=== PATIENT | male | born 2000 | race Caucasian/White ===

== ENCOUNTER 2021-07-20 11:26 | Inpatient (IN) | payer OTHER ==
[2021-07-20 11:33] VITALS: BMI 23.8
[2021-07-20] MEDS ORDERED: BISMUTH SUBSALICYLATE 524 MG/30 ML PO PRN (12:32)
[2021-07-20] MEDS ORDERED: cloNIDine HCL 0.1 MG TABLET PO PRN (12:32)
[2021-07-20] MEDS ORDERED: ONDANSETRON *ODT* 4 MG TABLET SL PRN (12:32)
[2021-07-20] MEDS ORDERED: MAG HYDROX/AL HYDROX/SIMETH 30 ML UNIT-DOSE CUP PO PRN (12:32)
[2021-07-20] MEDS ORDERED: MAGNESIUM CITRATE 300 ML BOTTLE PO PRN (12:32)
[2021-07-20] MEDS ORDERED: ACETAMINOPHEN 325 MG TABLET (FP) PO PRN (12:32)
[2021-07-20] MEDS ORDERED: MENTHOL/PHENOL 1 EACH UD MM PRN (12:32)
[2021-07-20] MEDS ORDERED: IBUPROFEN 400 MG TABLET (FP) PO PRN (12:32)
[2021-07-20] MEDS ORDERED: MAGNESIUM HYDROX 2400MG/30ML ORAL SUSPENSION 30 ML CUP PO PRN (12:32)
[2021-07-20] MEDS ORDERED: methaDONE HCL 10 MG TABLET (FOR DETOX USE ONLY) PO ONE (14:00)
[2021-07-20] MEDS: PRENATAL VITAMINS W/ FOLIC ACID TABLET (FP) PO SCH (14:06)
[2021-07-20] MEDS: hydrOXYzine PAMOATE 25 MG CAPSULE (FP) PO SCH ×3 (14:09→22:03)
[2021-07-20] MEDS: METHOCARBAMOL 500 MG TABLET PO PRN (14:09)
[2021-07-20 17:21] LABS: HEMATOCRIT 39.7 % (35.4-49); HEMOGLOBIN 13.5 GM/dL (11.7-16.9); MCH 29.5 pg (25.7-33.7); MEAN CELL VOLUME 86.9 fl (80-96); MEAN PLT VOLUME 8.6 fl (7.5-11.1); PLATELET COUNT 232 10^3/uL (134-434); RBC 4.57 M/mm3 (4.00-5.60); RDW 12.7 % (11.9-15.9); WHITE BLOOD COUNT 8.4 K/mm3 (4.0-10.0)
[2021-07-20 17:24] LABS: CALCIUM 9.1 mg/dL (8.5-10.1)
[2021-07-20 17:25] LABS: ALBUMIN 3.7 g/dl (3.4-5.0); BLOOD UREA NITROGEN 12.2 mg/dL (7-18)
[2021-07-20 17:28] LABS: CREATININE 0.6 mg/dL (0.55-1.3)
[2021-07-20 17:30] LABS: BILIRUBIN,TOTAL 0.6 mg/dL (0.2-1); TOT PROT 7.2 g/dl (6.4-8.2)
[2021-07-20] MEDS: diazePAM 5 MG TABLET PO SCH ×2 (17:52→22:03)
[2021-07-20] MEDS: ACETAMINOPHEN 325 MG TABLET (FP) PO PRN (20:59)
[2021-07-20] MEDS ORDERED: MELATONIN 5 MG TABLETS PO SCH (22:00)
[2021-07-20] MEDS: THIAMINE HCL 100 MG TABLET (FP) PO SCH (22:03)
[2021-07-21] MEDS: diazePAM 5 MG TABLET PO SCH ×4 (05:39→22:00)
[2021-07-21] MEDS: hydrOXYzine PAMOATE 25 MG CAPSULE (FP) PO SCH ×5 (05:39→21:58)
[2021-07-21] MEDS: NICOTINE 10 MG CARTRIDGE (INHALER) IH PRN (07:47)
[2021-07-21] MEDS ORDERED: methaDONE HCL 10 MG TABLET (FOR DETOX USE ONLY) ONE (09:35)
[2021-07-21] MEDS: PRENATAL VITAMINS W/ FOLIC ACID TABLET (FP) PO SCH (10:34)
[2021-07-21] MEDS: METHOCARBAMOL 500 MG TABLET PO PRN (10:35)
[2021-07-21] MEDS: MELATONIN 5 MG TABLETS PO SCH (21:58)
[2021-07-21] MEDS: THIAMINE HCL 100 MG TABLET (FP) PO SCH (21:58)
[2021-07-22] MEDS: hydrOXYzine PAMOATE 25 MG CAPSULE (FP) PO SCH ×5 (06:10→22:54)
[2021-07-22] MEDS: diazePAM 5 MG TABLET PO SCH ×3 (06:10→22:54)
[2021-07-22] MEDS ORDERED: methaDONE HCL 10 MG TABLET (FOR DETOX USE ONLY) PO ONE (10:00)
[2021-07-22] MEDS: PRENATAL VITAMINS W/ FOLIC ACID TABLET (FP) PO SCH (10:47)
[2021-07-22] MEDS: diazePAM 5 MG TABLET PO PRN ×2 (10:49→18:18)
[2021-07-22] MEDS: NICOTINE 10 MG CARTRIDGE (INHALER) IH PRN (18:19)
[2021-07-22] MEDS: THIAMINE HCL 100 MG TABLET (FP) PO SCH (22:54)
[2021-07-22] MEDS: ACETAMINOPHEN 325 MG TABLET (FP) PO PRN (22:58)
[2021-07-22] MEDS: MELATONIN 5 MG TABLETS PO SCH (23:00)
[2021-07-23] MEDS: hydrOXYzine PAMOATE 25 MG CAPSULE (FP) PO SCH ×2 (05:46→10:35)
[2021-07-23] MEDS ORDERED: diazePAM 5 MG TABLET PO SCH (06:00)
[2021-07-23 09:53] VITALS: BP 122/75; PULSE 67; TEMP 98.6
[2021-07-23] MEDS ORDERED: methaDONE HCL 10 MG TABLET (FOR DETOX USE ONLY) PO ONE (10:00)
[2021-07-23] MEDS: PRENATAL VITAMINS W/ FOLIC ACID TABLET (FP) PO SCH (10:33)
[2021-07-23] MEDS: diazePAM 5 MG TABLET PO PRN (10:37)
[2021-07-24] MEDS ORDERED: diazePAM 5 MG TABLET PO ONE (06:00)
[2021-07-24] MEDS ORDERED: methaDONE HCL 10 MG TABLET (FOR DETOX USE ONLY) PO ONE (10:00)
== END 2021-07-23 11:55 | disposition home or self-care (01) | DRG 773 ==
LOC: YASAS 11:26 → Y6N 13:01
PROVIDERS: ADMIT Allergy & Immunology; ATTEND Allergy & Immunology
PROC: HZ2ZZZZ Detoxification Services for Substance Abuse Treatment (ICD-10-PCS; principal; 2021-07-20)
DX: F11.23 Opioid dependence with withdrawal (principal); F13.232 Sedative, hypnotic or anxiolytic dependence with withdrawal with perceptual disturbance; F12.20 Cannabis dependence, uncomplicated; F17.210 Nicotine dependence, cigarettes, uncomplicated; F19.282 Other psychoactive substance dependence with psychoactive substance-induced sleep disorder; F40.10 Social phobia, unspecified; F41.1 Generalized anxiety disorder; Z86.69 Personal history of other diseases of the nervous system and sense organs; Z56.0 Unemployment, unspecified
CPT/HCPCS: 36415; 80053; 85027; 86780; 93005; 93010; C9803; U0003; U0005

== ENCOUNTER 2021-09-07 18:36 | Inpatient (IN) | payer OTHER ==
[2021-09-07 20:45] VITALS: BMI 21.8
[2021-09-07] MEDS ORDERED: MAG HYDROX/AL HYDROX/SIMETH 30 ML UNIT-DOSE CUP PO PRN (21:06)
[2021-09-07] MEDS ORDERED: NALOXONE (NARCAN) HCL 4 MG/0.1 ML SPRAY NS PRN (21:06)
[2021-09-07] MEDS ORDERED: DICYCLOMINE HCL 10 MG CAPSULE PO PRN (21:06)
[2021-09-07] MEDS ORDERED: NALOXONE HCL 0.4 MG/ML VIAL IM PRN (21:06)
[2021-09-07] MEDS ORDERED: BISMUTH SUBSALICYLATE 524 MG/30 ML PO PRN (21:06)
[2021-09-07] MEDS ORDERED: MENTHOL/PHENOL 1 EACH UD MM PRN (21:06)
[2021-09-07] MEDS ORDERED: ACETAMINOPHEN 325 MG TABLET (FP) PO PRN ×2 (21:06)
[2021-09-07] MEDS ORDERED: MAGNESIUM HYDROX 2400MG/30ML ORAL SUSPENSION 30 ML CUP PO PRN (21:06)
[2021-09-07] MEDS ORDERED: P-EPHED 60MG/TRIPROLIDI 2.5MG TABLET PO PRN (21:06)
[2021-09-07] MEDS ORDERED: PROCHLORPERAZINE MALEATE 5 MG TABLET PO PRN (21:06)
[2021-09-07] MEDS ORDERED: guaiFENesin 200 MG/10 ML 10 ML UNIT-DOSE CUPS PO PRN (21:06)
[2021-09-07] MEDS ORDERED: NICOTINE POLACRILEX 2 MG GUM BUC PRN (21:06)
[2021-09-07] MEDS ORDERED: MAGNESIUM CITRATE 300 ML BOTTLE PO PRN (21:06)
[2021-09-07] MEDS ORDERED: IBUPROFEN 400 MG TABLET (FP) PO PRN (21:06)
[2021-09-07] MEDS ORDERED: methaDONE HCL 10 MG TABLET (FOR DETOX USE ONLY) PO ONE (21:06)
[2021-09-07] MEDS ORDERED: MELATONIN 5 MG TABLETS PO SCH (22:00)
[2021-09-08] MEDS ORDERED: methaDONE HCL 10 MG TABLET (FOR DETOX USE ONLY) PO ONE (03:00)
[2021-09-08] MEDS: THIAMINE HCL 100 MG TABLET (FP) PO SCH ×2 (03:03→22:32)
[2021-09-08] MEDS ORDERED: hydrOXYzine PAMOATE 25 MG CAPSULE (FP) PO PRN (09:09)
[2021-09-08] MEDS ORDERED: methaDONE HCL 10 MG TABLET (FOR DETOX USE ONLY) ONE (09:52)
[2021-09-08] MEDS: NICOTINE 14 MG/24 HOURS TOPICAL PATCH TD SCH (10:16)
[2021-09-08] MEDS: PRENATAL VITAMINS W/ FOLIC ACID TABLET (FP) PO SCH (10:16)
[2021-09-08 12:26] LABS: CALCIUM 9.2 mg/dL (8.5-10.1)
[2021-09-08 12:27] LABS: ALBUMIN 3.7 g/dl (3.4-5.0); BLOOD UREA NITROGEN 12.6 mg/dL (7-18)
[2021-09-08 12:30] LABS: CREATININE 0.7 mg/dL (0.55-1.3)
[2021-09-08 12:32] LABS: BILIRUBIN,TOTAL 0.8 mg/dL (0.2-1); TOT PROT 6.9 g/dl (6.4-8.2)
[2021-09-08 12:35] LABS: HEMATOCRIT 41.8 % (35.4-49); HEMOGLOBIN 13.7 GM/dL (11.7-16.9); MCH 28.7 pg (25.7-33.7); MCHC 32.9 g/dl (32.0-35.9); MEAN CELL VOLUME 87.4 fl (80-96); MEAN PLT VOLUME 9.5 fl (7.5-11.1); PLATELET COUNT 234 10^3/uL (134-434); RBC 4.78 M/mm3 (4.00-5.60); RDW 13.1 % (11.9-15.9); WHITE BLOOD COUNT 7.1 K/mm3 (4.0-10.0)
[2021-09-08] MEDS: METHOCARBAMOL 500 MG TABLET PO PRN (22:32)
[2021-09-08] MEDS: SUVOREXANT 10 MG TABLET PO PRN (22:32)
[2021-09-09] MEDS ORDERED: methaDONE HCL 10 MG TABLET (FOR DETOX USE ONLY) PO ONE (10:00)
[2021-09-09] MEDS: METHOCARBAMOL 500 MG TABLET PO PRN ×2 (10:14→22:33)
[2021-09-09] MEDS: PRENATAL VITAMINS W/ FOLIC ACID TABLET (FP) PO SCH (10:14)
[2021-09-09] MEDS: cloNIDine HCL 0.1 MG TABLET PO PRN ×2 (10:14→22:31)
[2021-09-09] MEDS: NICOTINE 14 MG/24 HOURS TOPICAL PATCH TD SCH (10:15)
[2021-09-09] MEDS: SUVOREXANT 10 MG TABLET PO PRN (22:31)
[2021-09-09] MEDS: THIAMINE HCL 100 MG TABLET (FP) PO SCH (22:31)
[2021-09-10] MEDS ORDERED: methaDONE HCL 10 MG TABLET (FOR DETOX USE ONLY) ONE (08:50)
[2021-09-10] MEDS: PRENATAL VITAMINS W/ FOLIC ACID TABLET (FP) PO SCH (10:24)
[2021-09-10] MEDS: METHOCARBAMOL 500 MG TABLET PO PRN (10:24)
[2021-09-10] MEDS: NICOTINE 14 MG/24 HOURS TOPICAL PATCH TD SCH (10:25)
[2021-09-10 12:49] VITALS: BP 113/73; PULSE 70; TEMP 97.3
[2021-09-11] MEDS ORDERED: methaDONE HCL 10 MG TABLET (FOR DETOX USE ONLY) PO ONE (10:00)
== END 2021-09-10 14:05 | disposition left against medical advice (07) | DRG 770 ==
LOC: YASAS 18:36 → Y6N 09-08 01:06
PROVIDERS: ADMIT Allergy & Immunology; ATTEND Allergy & Immunology
PROC: HZ2ZZZZ Detoxification Services for Substance Abuse Treatment (ICD-10-PCS; principal; 2021-09-08)
DX: F11.23 Opioid dependence with withdrawal (principal); F14.10 Cocaine abuse, uncomplicated; F12.10 Cannabis abuse, uncomplicated; F17.210 Nicotine dependence, cigarettes, uncomplicated; F19.280 Other psychoactive substance dependence with psychoactive substance-induced anxiety disorder; F19.282 Other psychoactive substance dependence with psychoactive substance-induced sleep disorder; F19.24 Other psychoactive substance dependence with psychoactive substance-induced mood disorder; Z86.69 Personal history of other diseases of the nervous system and sense organs; Z56.0 Unemployment, unspecified
CPT/HCPCS: 36415; 80053; 85027; 86780; C9803; J0735; U0003; U0005

== ENCOUNTER 2021-12-24 21:18 | Inpatient (IN) | payer OTHER ==
[2021-12-24 22:18] VITALS: BMI 23.6
[2021-12-24] MEDS ORDERED: MAG HYDROX/AL HYDROX/SIMETH 30 ML UNIT-DOSE CUP PO PRN (22:56)
[2021-12-24] MEDS ORDERED: BISMUTH SUBSALICYLATE 524 MG/30 ML PO PRN (22:56)
[2021-12-24] MEDS ORDERED: cloNIDine HCL 0.1 MG TABLET PO PRN (22:56)
[2021-12-24] MEDS ORDERED: ACETAMINOPHEN 325 MG TABLET (FP) PO PRN ×2 (22:56)
[2021-12-24] MEDS ORDERED: MAGNESIUM HYDROX 2400MG/30ML ORAL SUSPENSION 30 ML CUP PO PRN (22:56)
[2021-12-24] MEDS ORDERED: IBUPROFEN 400 MG TABLET (FP) PO PRN (22:56)
[2021-12-24] MEDS ORDERED: BENZOCAINE/MENTHOL (CHLORASEPTIC ) LOZENGE MM PRN (22:56)
[2021-12-24] MEDS ORDERED: ONDANSETRON *ODT* 4 MG TABLET SL PRN (22:56)
[2021-12-24] MEDS ORDERED: LOPERAMIDE HCL 2 MG CAPSULE PO PRN (22:56)
[2021-12-24] MEDS ORDERED: methaDONE HCL 10 MG TABLET (FOR DETOX USE ONLY) PO ONE (22:56)
[2021-12-24] MEDS ORDERED: MAGNESIUM CITRATE 300 ML BOTTLE PO PRN (22:56)
[2021-12-24] MEDS ORDERED: DICYCLOMINE HCL 10 MG CAPSULE PO PRN (22:56)
[2021-12-25] MEDS: METHOCARBAMOL 500 MG TABLET PO PRN ×3 (01:01→22:21)
[2021-12-25] MEDS ORDERED: methaDONE HCL 10 MG TABLET (FOR DETOX USE ONLY) ONE (09:28)
[2021-12-25] MEDS: PRENATAL VITAMINS W/ FOLIC ACID TABLET (FP) PO SCH (10:13)
[2021-12-25] MEDS: NICOTINE 14 MG/24 HOURS TOPICAL PATCH TD SCH (10:15)
[2021-12-25 10:28] LABS: HEMATOCRIT 39.1 % (35.4-49); MCH 29.3 pg (25.7-33.7); MCHC 33.3 g/dl (32.0-35.9); MEAN PLT VOLUME 8.9 fl (7.5-11.1); PLATELET COUNT 215 10^3/uL (134-434); RBC 4.44 M/mm3 (4.00-5.60); RDW 13.5 % (11.9-15.9); WHITE BLOOD COUNT 7.1 K/mm3 (4.0-10.0)
[2021-12-25 10:33] LABS: CALCIUM 8.7 mg/dL (8.5-10.1)
[2021-12-25 10:34] LABS: ALBUMIN 3.5 g/dl (3.4-5.0); BLOOD UREA NITROGEN 17.7 mg/dL (7-18)
[2021-12-25 10:37] LABS: CREATININE 0.6 mg/dL (0.55-1.3)
[2021-12-25 10:38] LABS: TOT PROT 6.5 g/dl (6.4-8.2)
[2021-12-25 10:40] LABS: BILIRUBIN,TOTAL 0.4 mg/dL (0.2-1)
[2021-12-25] MEDS: NICOTINE 10 MG CARTRIDGE (INHALER) IH PRN ×2 (13:54→22:22)
[2021-12-25] MEDS ORDERED: MELATONIN 5 MG TABLETS PO SCH (22:00)
[2021-12-25] MEDS: SUVOREXANT 10 MG TABLET PO PRN (22:21)
[2021-12-25] MEDS: THIAMINE HCL 100 MG TABLET (FP) PO SCH (22:23)
[2021-12-26] MEDS ORDERED: methaDONE HCL 10 MG TABLET (FOR DETOX USE ONLY) PO ONE (10:00)
[2021-12-26] MEDS: NICOTINE 14 MG/24 HOURS TOPICAL PATCH TD SCH (10:21)
[2021-12-26] MEDS: METHOCARBAMOL 500 MG TABLET PO PRN ×2 (10:22→17:44)
[2021-12-26] MEDS: PRENATAL VITAMINS W/ FOLIC ACID TABLET (FP) PO SCH (10:22)
[2021-12-26] MEDS: THIAMINE HCL 100 MG TABLET (FP) PO SCH (22:32)
[2021-12-26] MEDS: SUVOREXANT 10 MG TABLET PO PRN (22:34)
[2021-12-27 00:06] LABS: SARS-CoV-2 NAA Not Detected (Not Detected)
[2021-12-27 00:06] LABS: SARS-CoV-2 NAA Not Detected (Not Detected)
[2021-12-27] MEDS ORDERED: methaDONE HCL 10 MG TABLET (FOR DETOX USE ONLY) ONE (09:03)
[2021-12-27] MEDS: METHOCARBAMOL 500 MG TABLET PO PRN (10:08)
[2021-12-27] MEDS: NICOTINE 10 MG CARTRIDGE (INHALER) IH PRN (10:08)
[2021-12-27] MEDS: NICOTINE 14 MG/24 HOURS TOPICAL PATCH TD SCH (10:08)
[2021-12-27] MEDS: PRENATAL VITAMINS W/ FOLIC ACID TABLET (FP) PO SCH (10:08)
[2021-12-27 16:51] VITALS: BP 117/65; PULSE 74; TEMP 97.1
[2021-12-28] MEDS ORDERED: methaDONE HCL 10 MG TABLET (FOR DETOX USE ONLY) PO ONE (10:00)
== END 2021-12-27 17:52 | disposition left against medical advice (07) | DRG 770 ==
LOC: YASAS 21:18 → Y3N 22:56
PROVIDERS: ADMIT Allergy & Immunology; ATTEND Allergy & Immunology
PROC: HZ2ZZZZ Detoxification Services for Substance Abuse Treatment (ICD-10-PCS; principal; 2021-12-24)
DX: F11.23 Opioid dependence with withdrawal (principal); F12.20 Cannabis dependence, uncomplicated; F17.210 Nicotine dependence, cigarettes, uncomplicated; F19.282 Other psychoactive substance dependence with psychoactive substance-induced sleep disorder; G47.00 Insomnia, unspecified; Z86.69 Personal history of other diseases of the nervous system and sense organs
CPT/HCPCS: 36415; 80053; 85027; 86780; 93005; 93010; C9803-CS; U0003; U0005